=== PATIENT | female | born 1945 | race Caucasian/White ===

== ENCOUNTER → 2019-12-16 | Outpatient (CLI) | payer OTHER | LOC: RAD 11:34 | DX: M43.22 Fusion of spine, cervical region (principal); Z96.698 Presence of other orthopedic joint implants ==

== ENCOUNTER → 2020-03-22 | Outpatient (CLI) | payer OTHER | LOC: RAD 12:01 | DX: M43.22 Fusion of spine, cervical region (principal) ==